=== PATIENT | female | born 1995 | race Caucasian/White ===

== ENCOUNTER 2020-01-08 16:15 | Outpatient (CLI) | payer SELFPAY | END 2020-01-08 16:16 | disposition home or self-care (01) | LOC: COV 16:15 | PROVIDERS: ATTEND Family Medicine | DX: Z20.828 Contact with and (suspected) exposure to other viral communicable diseases (principal) ==

== ENCOUNTER 2021-02-23 08:00 | Outpatient (CLI) | payer BC | END 2021-02-23 23:59 | LOC: LAB 08:00 | PROVIDERS: ATTEND Family Medicine | DX: J06.9 Acute upper respiratory infection, unspecified (principal); R07.0 Pain in throat; Z20.822 Contact with and (suspected) exposure to COVID-19 ==